=== PATIENT | male | born 1990 | race Two or more races ===

== ENCOUNTER 2022-02-14 18:45 | Emergency (ER) | payer OTHER ==
[~2022-02-14] VITALS: Ht 177.8 cm; Wt 68.0 kg
[2022-02-14 18:49] VITALS: BP 122/71
--- NOTE | 2022-02-14 19:05 | NUR ---
[age] BIBSELF FROM HOME C/O LEFT KNEE PAIN X 2 MONTHS,GETTING WORSE,DENIES ANY TRAUMA. PT A/OX4. AMB WITH STEADY GAIT
--- NOTE | 2022-02-14 19:07 | NUR ---
PT TAKEN TO RADIOLOGY VIA W/C
--- NOTE | 2022-02-14 19:50 | NUR ---
Patient discharged to home in stable condition. Written and verbal after care instructions given. Patient verbalizes understanding of instruction. PT ambulatory with a steady gait
== END 2022-02-14 19:51 | disposition home or self-care (01) ==
LOC: ER 18:50
DX: M25.562 Pain in left knee (principal); Z60.2 Problems related to living alone
CPT/HCPCS: 73564-TC